=== PATIENT | female | born 1950 | race Caucasian/White ===

== ENCOUNTER 2022-08-26 08:57 | Observation (INO) ==
[2022-08-26 10:26] LABS: Basophils % 0.2 % (0.0-0.8); Eosinophils % 0.1 % (0.00-10.9); Hematocrit 35.5 VOL% (35.7-47.0); Immature Granulocytes % 0.5 %; Immature Granulocytes Absolute 0.05 #; Lymphocytes # 1.1 10*3/uL (1.4-4.0); Lymphocytes % 10.8 % (21.3-54.2); Mean Corpuscular HGB Conc 33.8 GM/DL (32-36); Mean Corpuscular Volume 91.7 FL (87-102); Mean Platelet Volume 9.9 FL (9.6-12.0); Monocytes # 0.8 10*3/uL (0.11-0.8); Monocytes % 7.7 % (1.7-12.7); Neutrophils % 80.7 % (38.7-73.9); Platelet Count 264 T/CUMM (130-400); Red Blood Count 3.87 MC/CUMM (3.8-5.5); Red Cell Distribution Width 13.8 % (9.3-17.3); White Blood Count 9.9 T/CUMM (4-12)
[2022-08-26 10:39] LABS: Albumin 4.2 G/DL (3.4-5.0); Bilirubin,Total 0.6 MG/DL (0.20-1.00); Osmolality,Calculated 250.6 MOS/KG (273-304); Potassium 3.5 MMOL/L (3.5-5.1); Total Protein 7.7 G/DL (6.4-8.2)
[2022-08-26] MEDS ORDERED: ONDANSETRON 4 MG/2 ML VIAL IV STA (11:20)
[2022-08-26] MEDS ORDERED: SODIUM CHLORIDE 0.9% 500 ML IV STA (11:51)
[2022-08-26] MEDS ORDERED: ACETAMINOPHEN 325 MG TABLET ONE (13:12)
[2022-08-26] MEDS ORDERED: ACETAMINOPHEN 325 MG TABLET PO ONE (13:13)
[2022-08-26] MEDS: LACTATED RINGERS 1,000 ML IV SCH (13:52)
[2022-08-26] MEDS: ENOXAPARIN 40 MG/0.4 ML SYRINGE SUBCUT SCH (14:15)
[2022-08-26 16:09] LABS: Thyroid Stimulating Hormone 0.31 uIU/ml (0.358-3.74)
[2022-08-26] MEDS: ACETAMINOPHEN 325 MG TABLET PO PRN (22:30)
[2022-08-26] MEDS: ONDANSETRON 4 MG/2 ML VIAL IV PRN (22:31)
[2022-08-27] MEDS: LACTATED RINGERS 1,000 ML IV SCH ×2 (00:52→05:30)
[2022-08-27] MEDS: ACETAMINOPHEN 325 MG TABLET PO PRN ×2 (02:55→06:36)
[2022-08-27] MEDS: ONDANSETRON 4 MG/2 ML VIAL IV PRN ×3 (02:56→21:31)
[2022-08-27 04:58] LABS: Basophils % 0.3 % (0.0-0.8); Eosinophils # 0.1 10*3/uL (0.0-0.87); Eosinophils % 0.8 % (0.00-10.9); Hematocrit 31.3 VOL% (35.7-47.0); Hemoglobin 10.8 GM/DL (12.0-16.0); Immature Granulocytes % 0.2 %; Immature Granulocytes Absolute 0.01 #; Lymphocytes # 1.7 10*3/uL (1.4-4.0); Lymphocytes % 25.7 % (21.3-54.2); Mean Corpuscular HGB Conc 34.5 GM/DL (32-36); Mean Corpuscular Volume 90.7 FL (87-102); Mean Platelet Volume 9.5 FL (9.6-12.0); Monocytes % 15.3 % (1.7-12.7); Neutrophils % 57.7 % (38.7-73.9); Platelet Count 220 T/CUMM (130-400); Red Blood Count 3.45 MC/CUMM (3.8-5.5); Red Cell Distribution Width 13.8 % (9.3-17.3); White Blood Count 6.6 T/CUMM (4-12)
[2022-08-27 05:26] LABS: Calcium 8.1 MG/DL (8.5-10.1); Osmolality,Calculated 265.2 MOS/KG (273-304); Potassium 3.2 MMOL/L (3.5-5.1)
[2022-08-27] MEDS ORDERED: MAGNESIUM SULF RIDER 4 GM/100 ML PREMIX IV ONE (07:27)
[2022-08-27] MEDS ORDERED: ONDANSETRON 4 MG/2 ML VIAL IV ONE (08:57)
[2022-08-27] MEDS ORDERED: OLMESARTAN 5 MG TABLET PO SCH (09:00)
[2022-08-27] MEDS: POTASSIUM CHLORIDE 20 MEQ TABLET PO SCH ×3 (10:05→15:43)
[2022-08-27] MEDS ORDERED: THIAMINE INJ 100 MG, FOLIC ACID INJ 1 MG, MULTIVITAMIN INJ 10 ML in SODIUM CHLORIDE 0.9... IV ONE (13:15)
[2022-08-27] MEDS: BUTALBITAL/ACETAMIN/CAFFEINE 50-325-40 MG TABLET PO PRN ×2 (14:04→21:24)
[2022-08-27] MEDS: ENOXAPARIN 40 MG/0.4 ML SYRINGE SUBCUT SCH (14:05)
[2022-08-27] MEDS ORDERED: LORazepam 2 MG/1 ML VIAL IV PRN (15:17)
[2022-08-27 15:44] LABS: Folate 20.4 NG/ML (5.38-24.0)
[2022-08-28] MEDS: ACETAMINOPHEN 325 MG TABLET PO PRN ×2 (02:38→08:51)
[2022-08-28 07:57] LABS: Basophils % 0.3 % (0.0-0.8); Eosinophils # 0.1 10*3/uL (0.0-0.87); Hematocrit 33.4 VOL% (35.7-47.0); Hemoglobin 11.3 GM/DL (12.0-16.0); Immature Granulocytes % 0.2 %; Immature Granulocytes Absolute 0.01 #; Lymphocytes # 1.8 10*3/uL (1.4-4.0); Lymphocytes % 30.8 % (21.3-54.2); Mean Corpuscular HGB Conc 33.8 GM/DL (32-36); Mean Corpuscular Volume 92.8 FL (87-102); Monocytes # 0.9 10*3/uL (0.11-0.8); Monocytes % 15.3 % (1.7-12.7); Neutrophils % 51.4 % (38.7-73.9); Platelet Count 243 T/CUMM (130-400); Red Cell Distribution Width 13.9 % (9.3-17.3); White Blood Count 5.9 T/CUMM (4-12)
[2022-08-28 08:15] VITALS: BP 151/80
[2022-08-28 08:19] LABS: Calcium 7.9 MG/DL (8.5-10.1); Osmolality,Calculated 265.2 MOS/KG (273-304); Potassium 3.9 MMOL/L (3.5-5.1)
[2022-08-28] MEDS ORDERED: OLMESARTAN 20 MG TABLET PO SCH (09:00)
[2022-08-28] MEDS: BUTALBITAL/ACETAMIN/CAFFEINE 50-325-40 MG TABLET PO PRN (12:24)
== END 2022-08-28 13:14 | disposition home or self-care (01) ==
LOC: N.EDINP 08:57 → N.ED 08:57 → N.2W 14:02
PROVIDERS: ADMIT Internal Medicine; ATTEND Internal Medicine